=== PATIENT | male | born 1980 | race Caucasian/White ===

== ENCOUNTER 2020-11-28 21:50 | Emergency (ER) | payer BC ==
[~2020-11-28] VITALS: Ht 170.2 cm; Wt 72.6 kg
--- NOTE | 2020-11-28 21:55 | NUR ---
pt bibself c/o seizure yesterday at work. Pt aaox4 breathing evenly. Pt admits to drinking heavily and his last drink was today in the afternoon. pt attached to monitor and pox. MD at bedside. Pt iven blanket and call light within reach
[2020-11-28] MEDS ORDERED: CHLORDIAZEPOXIDE HCL 25 MG CAPSULE ONE (23:30)
[2020-11-28] MEDS ORDERED: CHLORDIAZEPOXIDE HCL 25 MG CAPSULE PO ONE (23:30)
--- NOTE | 2020-11-28 23:50 | NUR ---
blood sent to lab
[2020-11-29 00:02] LABS: BASOPHILS % (AUTO) 0.6 % (0.0-2.0); EOSINOPHILS % (AUTO) 2.2 % (0.0-6.0); HEMATOCRIT 42 % (39-51); HEMOGLOBIN 13.5 g/dL (13.5-17.5); LYMPHOCYTES # (AUTO) 1.9 K/uL (0.8-4.8); LYMPHOCYTES % (AUTO) 23.6 % (20.0-44.0); MEAN CORPUSCULAR HGB CONC 32 g/dl (31.0-36.0); MEAN CORPUSCULAR VOLUME 85 fL (80-96); MONOCYTES # (AUTO) 1.1 K/uL (0.1-1.30); MONOCYTES % (AUTO) 13.9 % (2.0-12.0); NEUTROPHILS # (AUTO) 4.7 K/uL (1.8-8.9); NEUTROPHILS % (AUTO) 59.7 % (43.0-81.0); PLATELET COUNT (AUTO) 396 K/uL (150-450); RED BLOOD CELL COUNT(AUTO) 4.93 MIL/uL (4.5-6.0); WHITE BLOOD COUNT (AUTO) 7.9 K/uL (4.3-11.0)
[2020-11-29 00:13] LABS: CALCIUM, SERUM 8.5 mg/dL (8.5-10.1); POTASSIUM 3.6 mmol/L (3.5-5.1)
[2020-11-29 00:19] LABS: ALBUMIN 3.3 g/dL (3.4-5.0); BILIRUBIN,DIRECT 0.1 mg/dL (0.0-0.2); BILIRUBIN,TOTAL 0.3 mg/dL (0.2-1.0); TOTAL PROTEIN, SERUM 7.8 g/dL (6.4-8.2)
[2020-11-29] MEDS ORDERED: CHLO25CA22 PO (01:28)
--- NOTE | 2020-11-29 01:36 | NUR ---
Patient discharged to home in stable condition. Written and verbal after care instructions given. Patient verbalizes understanding of instruction. IV removed. Catheter intact and site benign. Pressure and 4x4 applied to site. No bleeding noted. Pt ambulatory with a steady gait
[2020-11-29 01:40] VITALS: BP 130/78
== END 2020-11-29 01:36 | disposition home or self-care (01) ==
LOC: ER 21:50
DX: F10.239 Alcohol dependence with withdrawal, unspecified (principal); Y90.9 Presence of alcohol in blood, level not specified
CPT/HCPCS: 36415; 70450-TC; 80048-TC; 80076-TC; 85025-TC; 85730-TC